=== PATIENT | male | born 1945 | race Caucasian/White ===

== ENCOUNTER 2017-10-15 06:12 | Day surgery (SDC) | payer MEDICARE, OTHER ==
[~2017-10-15 06:12] MED LIST: AMLO10TA2 PO; B-COTAB10 OR; BUPR1TAB11 PO; CLOP75TA28 PO; FURO80TA3 PO; INSU1INJ14 SC; INSUINJ7 SC; LABE300T PO; LEVO137T3 PO; PANT40TA2 PO; SEVE800T8 PO
[2017-10-15] MEDS ORDERED: ceFAZolin 1GM/100ML 100 ML IV ONE (06:38)
[2017-10-15] MEDS ORDERED: DEXAMETHASONE SOD PHOS 4 MG/1ML SDV INJ ONE (07:04)
[2017-10-15] MEDS ORDERED: LIDOCAINE 1% (LOCAL ANESTH.) PF 5ml SDV ONE (07:05)
[2017-10-15] MEDS ORDERED: BUPIVACAINE 0.25% INJ 50ML VIAL ONE (07:05)
[2017-10-15] MEDS ORDERED: METOCLOPRAMIDE HCL 5MG/ml INJ 2ml VIAL ONE (07:19)
[2017-10-15] MEDS ORDERED: MIDAZOLAM HCL 1MG/1ML-2 ML VIAL ONE (07:19)
[2017-10-15] MEDS ORDERED: LIDOCAINE HCL 2 %PF INJ 10ML AMP IJ ONE (07:23)
[2017-10-15] MEDS ORDERED: fentaNYL CITRATE 100 MCG/2 ML VL ONE (07:29)
[2017-10-15] MEDS ORDERED: ACCU-CHEK COMFORT CURVE STRIP VI ONE (08:00)
[2017-10-15] MEDS ORDERED: ONDANSETRON HCL 4 MG/2 ML VIAL IV ONE (08:00)
[2017-10-15] MEDS ORDERED: NALOXONE HCL 0.4 MG/ML VIAL IV PRN (08:00)
[2017-10-15] MEDS ORDERED: GLYCOPYRROLATE 0.2 MG/ML 1ML VIAL ONE (08:09)
[2017-10-15] MEDS ORDERED: NEOSTIGMINE 1 MG/ML INJ (10mg/10ML VIAL) ONE (08:09)
[2017-10-15] MEDS: MORPHINE SULFATE 4 MG/ML SYR/VIAL IV PRN ×2 (08:56→09:13)
[2017-10-15 09:37] VITALS: BP 175/69
== END 2017-10-15 09:39 | disposition home or self-care (01) ==
LOC: SUR 06:12
PROVIDERS: ATTEND Orthopaedic Surgery Adult Reconstructive Orthopaedic Surgery
DX: M65.321 Trigger finger, right index finger (principal); I48.91 Unspecified atrial fibrillation; I25.10 Atherosclerotic heart disease of native coronary artery without angina pectoris; G47.33 Obstructive sleep apnea (adult) (pediatric); E03.9 Hypothyroidism, unspecified; E78.5 Hyperlipidemia, unspecified; D64.9 Anemia, unspecified; K21.9 Gastro-esophageal reflux disease without esophagitis; M06.9 Rheumatoid arthritis, unspecified; M19.90 Unspecified osteoarthritis, unspecified site; N18.6 End stage renal disease; Z99.2 Dependence on renal dialysis; E11.22 Type 2 diabetes mellitus with diabetic chronic kidney disease; I12.0 Hypertensive chronic kidney disease with stage 5 chronic kidney disease or end stage renal disease; G51.0 Bell's palsy; Z87.891 Personal history of nicotine dependence; Z90.49 Acquired absence of other specified parts of digestive tract; Z86.73 Personal history of transient ischemic attack (TIA), and cerebral infarction without residual deficits; Z98.52 Vasectomy status
CPT/HCPCS: 20550; 64718; 82962; A6198; J0690; J1100; J2250; J2270; J2765; J3010; J3490

== ENCOUNTER 2020-06-29 15:35 | Emergency (ER) | payer MEDICARE, OTHER ==
[~2020-06-29] VITALS: Ht 170.2 cm; Wt 60.8 kg
[~2020-06-29 15:35] MED LIST changes: +AMLO-496 PO; -AMLO10TA2 PO; -LABE300T PO; +LABE300T3 PO
[2020-06-29 17:04] LABS: Basophils # (auto) 0.1 10 ^3/uL (0-0.2); Eosinophils # (auto) 0.1 10 ^3/uL (0-0.8); Lymphocytes # (auto) 0.4 10 ^3/uL (0.4-5.4); Nucleated Red Blood Cells % 0.1 %; Red Blood Cells 2.16 10^6/uL (4.5-5.90)
[2020-06-29 17:06] LABS: Basophils % (auto) 1.3 % (0.0-2.0); Eosinophils % (auto) 1.1 % (0.0-7.0); Hematocrit 21.8 % (41.0-53.0); Hemoglobin 7.1 g/dL (13.5-17.5); Lymphocytes % (auto) 6.1 % (10.0-50.0); Mean Corpuscular Hemoglobin 32.9 pg (28.0-32.0); Mean Corpuscular Hgb Conc. 32.7 g/dL (32.0-36.0); Mean Corpuscular Volume 100.5 fL (80.0-100.0); Neutrophils # (auto) 5.2 10 ^3/uL (1.6-8.6); Neutrophils % (auto) 76.5 % (37.0-80.0); Red Cell Distribution Width 17.1 % (11.8-14.3); White Blood Cell 6.8 10^3/uL (4.4-10.8)
[2020-06-29 17:19] LABS: INR 1.13 (0.9-1.15)
[2020-06-29 20:31] VITALS: BP 152/44
[2020-06-29 20:46] VITALS: BP 142/34
[2020-06-29 23:40] VITALS: BP 138/53
[2020-06-29 23:55] VITALS: BP 160/49
[2020-06-30 03:16] LABS: Hematocrit 29.1 % (41.0-53.0); Hemoglobin 9.8 g/dL (13.5-17.5)
[2020-06-30 03:40] VITALS: BP 145/66
== END 2020-06-30 04:08 | disposition home or self-care (01) ==
LOC: ER 15:35
DX: D64.9 Anemia, unspecified (principal); R53.83 Other fatigue; Z79.899 Other long term (current) drug therapy; Z20.822 Contact with and (suspected) exposure to COVID-19
CPT/HCPCS: 36415; 36430; 85014; 85018; 85025; 85610; 86850; 86900; 86901; 86920; 87426; 99285; C9803; P9016; U0003

== ENCOUNTER 2020-12-13 16:13 | Emergency (ER) | payer MEDICARE, OTHER ==
[~2020-12-13] VITALS: Ht 170.2 cm; Wt 56.2 kg
[2020-12-13] MEDS ORDERED: ACETAMINOPHEN 500 MG TAB PO ONE (17:00)
[2020-12-13] MEDS ORDERED: MORPHINE SULF INJ 2 MG/ML SYRINGE 1ML IV ONE (20:15)
[2020-12-13] MEDS ORDERED: ONDANSETRON HCL 4 MG/2 ML VIAL IV ONE (20:15)
[2020-12-13 20:24] VITALS: BP 161/68
== END 2020-12-13 20:44 | disposition short-term general hospital (02) ==
LOC: ER 16:13
DX: S34.139A Unspecified injury to sacral spinal cord, initial encounter (principal); S32.592A Other specified fracture of left pubis, initial encounter for closed fracture; E11.22 Type 2 diabetes mellitus with diabetic chronic kidney disease; N18.6 End stage renal disease; I10 Essential (primary) hypertension; E78.5 Hyperlipidemia, unspecified; Z87.891 Personal history of nicotine dependence; Z20.822 Contact with and (suspected) exposure to COVID-19; W18.39XA Other fall on same level, initial encounter; Y93.01 Activity, walking, marching and hiking; Y92.89 Other specified places as the place of occurrence of the external cause; Y99.8 Other external cause status
CPT/HCPCS: 36415; 72192; 87426; 93005; 96374; 96375; 99285; J2270; J2405